=== PATIENT | male | born 1960 | race African-American/Black ===

== ENCOUNTER 2024-02-12 14:52 | Inpatient (IN) | payer OTHER ==
[2024-02-12 17:08] LABS: BASO % 0.3 % (0-2.0); EOS % 0.1 % (0-4.5); HEMATOCRIT 30.5 % (35.4-49); HEMOGLOBIN 9.6 GM/dL (11.7-16.9); LYMPH % 4.5 % (8-40); MCH 25.2 pg (25.7-33.7); MCHC 31.4 g/dl (32.0-35.9); MEAN CELL VOLUME 80.4 fl (80-96); MEAN PLT VOLUME 8.8 fl (7.5-11.1); MONO % 5.8 % (3.8-10.2); NEUT % 89.3 % (42.8-82.8); PLATELET COUNT 317 10^3/uL (134-434); RBC 3.79 M/mm3 (4.00-5.60); RDW 23.9 % (11.9-15.9); WHITE BLOOD COUNT 13.5 K/mm3 (4.0-10.0)
[2024-02-12 17:56] LABS: VENOUS BASE EXCESS -6.6 mmol/L (-2-2); VENOUS PCO2 28.6 mmHg (38-52); VENOUS PH 7.396 (7.310-7.410)
[2024-02-12 17:58] LABS: LACTIC ACID 3.4 mmol/L (0.4-2.0)
[2024-02-12 18:09] LABS: CHLORIDE 95 mmol/L (98-107); POTASSIUM 5.3 mmol/L (3.5-5.1); SODIUM 128 mmol/L (136-145)
[2024-02-12 18:10] LABS: CALCIUM 8.1 mg/dL (8.5-10.1)
[2024-02-12 18:11] LABS: ALBUMIN 2.7 g/dl (3.4-5.0); ANION GAP 14 mmol/L (4-13); BLOOD UREA NITROGEN 80.3 mg/dL (7-18); CO2 19 mmol/L (21-32); MAGNESIUM 2.4 mg/dL (1.8-2.4)
[2024-02-12 18:14] LABS: CREATININE 4.8 mg/dL (0.55-1.3); SGOT/AST 21 U/L (15-37)
[2024-02-12 18:15] LABS: PHOSPHOROUS 7.1 mg/dL (2.5-4.9)
[2024-02-12 18:17] LABS: ALK PHOS 170 U/L (45-117)
[2024-02-12 18:21] LABS: GLUCOSE,RANDOM 579 mg/dL (74-106)
[2024-02-12 18:26] LABS: SGPT/ALT 13 U/L (13-61)
[2024-02-12] MEDS ORDERED: INSULIN REGULAR HUMAN 100 UNITS/ML *VIAL ONE ×2 (18:43→22:38)
[2024-02-12] MEDS: INSULIN REGULAR HUMAN 100 UNITS/ML *VIAL SQ ONE ×2 (18:44→22:49)
[2024-02-12] MEDS: SODIUM CHLORIDE 0.9% 500 ML INFUS.BAG IV ONE (18:44)
[2024-02-12 19:56] LABS: ANISOCYTOSIS 1+; MACROCYTOSIS 0; SICKELED CELLS 1+; TARGET CELLS 1+
[2024-02-12] MEDS: INSULIN (NOVOLOG) ASPART 100 UNITS/ML 10ML VIAL SQ ONE (21:56)
[2024-02-12] MEDS: INSULIN (LEVEMIR) 100 UNITS/ML UNITS SQ ONE (22:48)
[2024-02-13 02:32] LABS: ARTERIAL BLD GAS O2 SATURATION 97.1 % (95-98); ARTERIAL BLOOD GAS BASE EXCESS -6.3 mmol/L (-2-2); ARTERIAL BLOOD GAS PO2 94.4 mmHg (80-100)
[2024-02-13 02:33] LABS: ALLENS TEST POSITIVE
[2024-02-13 03:40] VITALS: BMI 33.3
[2024-02-13] MEDS ORDERED: HYDRALAZINE PO SCH (06:00)
[2024-02-13] MEDS ORDERED: [UNRECOGNIZED DRUG - OTHER] PO SCH (06:00)
[2024-02-13] MEDS ORDERED: ISOSORBIDE DINITRATE PO SCH (06:00)
[2024-02-13] MEDS: hydrALAZINE HCL 25 MG TABLET (FP) PO SCH (06:09)
[2024-02-13] MEDS: INSULIN ASPART SLIDING SCALE (NOVOLOG) 1 VIAL SQ SCH (07:21)
[2024-02-13] MEDS: ISOSORBIDE DINITRATE 20 MG TABLET PO SCH (10:34)
[2024-02-13] MEDS: SPIRONOLACTONE 25 MG TABLET PO SCH (10:39)
[2024-02-13] MEDS: AMIODARONE HCL 200 MG TABLET PO SCH (10:39)
[2024-02-13] MEDS: TAMSULOSIN HCL 0.4 MG CAP PO SCH (10:40)
[2024-02-13] MEDS: LOSARTAN POTASSIUM 25 MG TABLET PO SCH (11:33)
[2024-02-13 12:03] LABS: HEMOGLOBIN 9.1 GM/dL (11.7-16.9); MCH 25.4 pg (25.7-33.7); MCHC 32.3 g/dl (32.0-35.9); MEAN CELL VOLUME 78.6 fl (80-96); MEAN PLT VOLUME 8.5 fl (7.5-11.1); PLATELET COUNT 330 10^3/uL (134-434); RBC 3.57 M/mm3 (4.00-5.60); RDW 23.1 % (11.9-15.9); WHITE BLOOD COUNT 16.1 K/mm3 (4.0-10.0)
[2024-02-13 12:27] LABS: ERYTHROCYTE SEDIMENTATION RATE 46 mm/hr (0-20)
[2024-02-13 12:28] LABS: POTASSIUM 5.1 mmol/L (3.5-5.1)
[2024-02-13 12:34] LABS: BLOOD UREA NITROGEN 87.7 mg/dL (7-18); CALCIUM 7.9 mg/dL (8.5-10.1); MAGNESIUM 2.3 mg/dL (1.8-2.4)
[2024-02-13 12:38] LABS: PHOSPHOROUS 8.2 mg/dL (2.5-4.9)
[2024-02-13 12:52] LABS: LACTIC ACID 2.4 mmol/L (0.4-2.0)
[2024-02-13] MEDS: TORSEMIDE 100 MG TABLET PO SCH (14:34)
[2024-02-13] MEDS ORDERED: SODIUM CHLORIDE 250 ML IV PRN (15:17)
[2024-02-13] MEDS: PIPERACILLIN/TAZOB 2.25 GM 2.25 GM/50 ML BAG IVPB SCH (16:12)
[2024-02-13] MEDS: HEPARIN NA (PORCINE) 5,000 UNITS/ML 1ML VIAL IVPUSH ONE (16:30)
[2024-02-13] MEDS ORDERED: PIPERACILLIN/TAZOB 2.25 GM 2.25 GM/50 ML BAG IVPB SCH (18:00)
[2024-02-13] MEDS: EPOETIN ALFA-EPBX 4,000 UNIT/ML VIAL SQ ONE (18:13)
[2024-02-13] MEDS: RIVAROXABAN 15 MG TABLET PO SCH (18:52)
[2024-02-13 19:30] LABS: POTASSIUM 4.9 mmol/L (3.5-5.1)
[2024-02-13 19:31] LABS: CALCIUM 7.4 mg/dL (8.5-10.1)
[2024-02-13 19:32] LABS: BLOOD UREA NITROGEN 85.1 mg/dL (7-18)
[2024-02-13 19:35] LABS: CREATININE 5.1 mg/dL (0.55-1.3)
[2024-02-13] MEDS: ATORVASTATIN CA 20 MG TABLET (FP) PO SCH (22:25)
[2024-02-14 07:35] LABS: BASO % 0.2 % (0-2.0); EOS % 1.6 % (0-4.5); HEMATOCRIT 28.7 % (35.4-49); HEMOGLOBIN 9.2 GM/dL (11.7-16.9); LYMPH % 10.9 % (8-40); MCH 25.5 pg (25.7-33.7); MCHC 31.9 g/dl (32.0-35.9); MEAN CELL VOLUME 79.9 fl (80-96); MEAN PLT VOLUME 8.4 fl (7.5-11.1); MONO % 8.5 % (3.8-10.2); NEUT % 78.8 % (42.8-82.8); PLATELET COUNT 297 10^3/uL (134-434); RBC 3.59 M/mm3 (4.00-5.60); RDW 23.6 % (11.9-15.9); WHITE BLOOD COUNT 13.2 K/mm3 (4.0-10.0)
[2024-02-14] MEDS: VANCOMYCIN/WATER FOR INJ (PEG) 1,000 MG/200 ML BAG IVPB ONE ×2 (07:43→09:06)
[2024-02-14] MEDS: INSULIN (LEVEMIR) 100 UNITS/ML UNITS SQ ONE (07:45)
[2024-02-14 08:14] LABS: POTASSIUM 4.2 mmol/L (3.5-5.1)
[2024-02-14 08:27] LABS: CALCIUM 7.8 mg/dL (8.5-10.1)
[2024-02-14 08:31] LABS: ALBUMIN 2.6 g/dl (3.4-5.0); CREATININE 3.3 mg/dL (0.55-1.3)
[2024-02-14 08:32] LABS: BILIRUBIN,TOTAL 0.8 mg/dL (0.2-1); TOT PROT 6.8 g/dl (6.4-8.2)
[2024-02-14 08:33] LABS: LACTIC ACID 2.3 mmol/L (0.4-2.0)
[2024-02-14 08:34] LABS: BLOOD UREA NITROGEN 45.8 mg/dL (7-18)
[2024-02-14 08:35] LABS: PHOSPHOROUS 4.2 mg/dL (2.5-4.9)
[2024-02-14] MEDS: TAMSULOSIN HCL 0.4 MG CAP PO SCH (09:07)
[2024-02-14] MEDS: AMIODARONE HCL 200 MG TABLET PO SCH (09:27)
[2024-02-14] MEDS: SPIRONOLACTONE 25 MG TABLET PO SCH (09:27)
[2024-02-14] MEDS: TORSEMIDE 100 MG TABLET PO SCH (09:27)
[2024-02-14] MEDS: LOSARTAN POTASSIUM 25 MG TABLET PO SCH (09:28)
[2024-02-14] MEDS: ISOSORBIDE DINITRATE 20 MG TABLET PO SCH (09:28)
[2024-02-14] MEDS: PIPERACILLIN/TAZOB 2.25 GM 2.25 GM/50 ML BAG IVPB SCH (11:46)
[2024-02-14] MEDS: INSULIN ASPART SLIDING SCALE (NOVOLOG) 1 VIAL SQ SCH (13:21)
[2024-02-14] MEDS: hydrALAZINE HCL 25 MG TABLET (FP) PO SCH (13:24)
[2024-02-14] MEDS: RIVAROXABAN 15 MG TABLET PO SCH (18:17)
[2024-02-14] MEDS: INSULIN (LEVEMIR) 100 UNITS/ML UNITS SQ SCH (21:57)
[2024-02-14] MEDS: ATORVASTATIN CA 20 MG TABLET (FP) PO SCH (21:57)
[2024-02-15 07:42] LABS: BASO % 0.6 % (0-2.0); EOS % 2.2 % (0-4.5); HEMATOCRIT 29.5 % (35.4-49); HEMOGLOBIN 9.4 GM/dL (11.7-16.9); LYMPH % 14.5 % (8-40); MCH 25.4 pg (25.7-33.7); MCHC 31.8 g/dl (32.0-35.9); MEAN CELL VOLUME 79.8 fl (80-96); MEAN PLT VOLUME 8.5 fl (7.5-11.1); MONO % 10.3 % (3.8-10.2); NEUT % 72.4 % (42.8-82.8); PLATELET COUNT 324 10^3/uL (134-434); RDW 23.4 % (11.9-15.9); WHITE BLOOD COUNT 12.8 K/mm3 (4.0-10.0)
[2024-02-15 07:52] LABS: POTASSIUM 4.7 mmol/L (3.5-5.1)
[2024-02-15 07:55] LABS: ALBUMIN 2.9 g/dl (3.4-5.0); BLOOD UREA NITROGEN 55.6 mg/dL (7-18)
[2024-02-15 07:58] LABS: CREATININE 3.9 mg/dL (0.55-1.3)
[2024-02-15 07:59] LABS: PHOSPHOROUS 4.9 mg/dL (2.5-4.9)
[2024-02-15 08:00] LABS: TOT PROT 7.3 g/dl (6.4-8.2)
[2024-02-15] MEDS ORDERED: SODIUM CHLORIDE 250 ML IV PRN (13:43)
[2024-02-15] MEDS: EPOETIN ALFA-EPBX 4,000 UNIT/ML VIAL SQ ONE (14:54)
[2024-02-15] MEDS: hydrALAZINE HCL 25 MG TABLET (FP) PO SCH (22:03)
[2024-02-15] MEDS: INSULIN (LEVEMIR) 100 UNITS/ML UNITS SQ SCH (22:06)
[2024-02-15] MEDS: ATORVASTATIN CA 20 MG TABLET (FP) PO SCH (22:06)
[2024-02-15] MEDS: INSULIN ASPART SLIDING SCALE (NOVOLOG) 1 VIAL SQ SCH (22:08)
[2024-02-16] MEDS: PIPERACILLIN/TAZOB 2.25 GM 2.25 GM/50 ML BAG IVPB SCH (02:56)
[2024-02-16] MEDS: MELATONIN 5 MG TABLETS PO ONE (02:58)
[2024-02-16 09:20] LABS: HEMATOCRIT 29.4 % (35.4-49); HEMOGLOBIN 9.5 GM/dL (11.7-16.9); MCH 25.4 pg (25.7-33.7); MCHC 32.2 g/dl (32.0-35.9); MEAN CELL VOLUME 78.7 fl (80-96); MEAN PLT VOLUME 8.5 fl (7.5-11.1); PLATELET COUNT 296 10^3/uL (134-434); RBC 3.74 M/mm3 (4.00-5.60)
[2024-02-16 09:34] LABS: POTASSIUM 4.7 mmol/L (3.5-5.1)
[2024-02-16 09:38] LABS: CALCIUM 7.8 mg/dL (8.5-10.1)
[2024-02-16 09:39] LABS: ALBUMIN 2.8 g/dl (3.4-5.0); BLOOD UREA NITROGEN 62.4 mg/dL (7-18)
[2024-02-16 09:43] LABS: BILIRUBIN,TOTAL 1.1 mg/dL (0.2-1); TOT PROT 6.9 g/dl (6.4-8.2)
[2024-02-16 10:24] LABS: MAGNESIUM 2.1 mg/dL (1.8-2.4)
[2024-02-16] MEDS: EPOETIN ALFA-EPBX 4,000 UNIT/ML VIAL IVPUSH ONE (12:04)
[2024-02-16] MEDS: ISOSORBIDE DINITRATE 20 MG TABLET PO SCH (13:51)
[2024-02-16] MEDS: LOSARTAN POTASSIUM 25 MG TABLET PO SCH (14:26)
[2024-02-16] MEDS: SPIRONOLACTONE 25 MG TABLET PO SCH (14:26)
[2024-02-16] MEDS: AMIODARONE HCL 200 MG TABLET PO SCH (14:27)
[2024-02-16] MEDS: TAMSULOSIN HCL 0.4 MG CAP PO SCH (14:32)
[2024-02-16] MEDS: TORSEMIDE 100 MG TABLET PO SCH (14:44)
[2024-02-16] MEDS: RIVAROXABAN 15 MG TABLET PO SCH (17:15)
[2024-02-17 08:59] LABS: BASO % 0.8 % (0-2.0); EOS % 1.5 % (0-4.5); HEMATOCRIT 31.8 % (35.4-49); HEMOGLOBIN 9.7 GM/dL (11.7-16.9); LYMPH % 10.1 % (8-40); MCH 24.7 pg (25.7-33.7); MCHC 30.5 g/dl (32.0-35.9); MONO % 9.8 % (3.8-10.2); NEUT % 77.8 % (42.8-82.8); PLATELET COUNT 289 10^3/uL (134-434); RBC 3.93 M/mm3 (4.00-5.60); RDW 24.8 % (11.9-15.9)
[2024-02-17 09:22] LABS: POTASSIUM 3.9 mmol/L (3.5-5.1)
[2024-02-17 09:30] LABS: CALCIUM 8.1 mg/dL (8.5-10.1)
[2024-02-17 09:31] LABS: ALBUMIN 2.7 g/dl (3.4-5.0); BLOOD UREA NITROGEN 41.1 mg/dL (7-18); MAGNESIUM 1.9 mg/dL (1.8-2.4)
[2024-02-17 09:34] LABS: ANISOCYTOSIS 2+; MACROCYTOSIS 0; OVALOCYTE 1+; TARGET CELLS 1+
[2024-02-17 09:35] LABS: BILIRUBIN,TOTAL 1.1 mg/dL (0.2-1)
[2024-02-17 09:36] LABS: TOT PROT 6.9 g/dl (6.4-8.2)
[2024-02-18 08:41] LABS: BASO % 1.5 % (0-2.0); EOS % 2.7 % (0-4.5); HEMATOCRIT 30.1 % (35.4-49); HEMOGLOBIN 9.3 GM/dL (11.7-16.9); LYMPH % 11.4 % (8-40); MCH 25.1 pg (25.7-33.7); MCHC 30.9 g/dl (32.0-35.9); MEAN CELL VOLUME 81.4 fl (80-96); NEUT % 72.4 % (42.8-82.8); PLATELET COUNT 274 10^3/uL (134-434); RDW 24.6 % (11.9-15.9); WHITE BLOOD COUNT 11.4 K/mm3 (4.0-10.0)
[2024-02-18 09:11] LABS: POTASSIUM 4.1 mmol/L (3.5-5.1)
[2024-02-18 09:16] LABS: ALBUMIN 2.8 g/dl (3.4-5.0); BLOOD UREA NITROGEN 45.8 mg/dL (7-18); CALCIUM 8.6 mg/dL (8.5-10.1)
[2024-02-18 09:19] LABS: CREATININE 3.1 mg/dL (0.55-1.3)
[2024-02-18 09:20] LABS: BILIRUBIN,TOTAL 1.1 mg/dL (0.2-1); TOT PROT 6.8 g/dl (6.4-8.2)
[2024-02-18] MEDS ORDERED: SODIUM CHLORIDE 250 ML IV PRN (09:28)
[2024-02-18] MEDS: EPOETIN ALFA-EPBX 4,000 UNIT/ML VIAL IVPUSH ONE (11:03)
[2024-02-19 11:08] LABS: BASO % 1.1 % (0-2.0); EOS % 2.5 % (0-4.5); HEMATOCRIT 30.2 % (35.4-49); HEMOGLOBIN 9.8 GM/dL (11.7-16.9); LYMPH % 12.1 % (8-40); MCH 25.9 pg (25.7-33.7); MCHC 32.4 g/dl (32.0-35.9); MEAN CELL VOLUME 79.9 fl (80-96); MEAN PLT VOLUME 8.1 fl (7.5-11.1); NEUT % 68.3 % (42.8-82.8); PLATELET COUNT 281 10^3/uL (134-434); RBC 3.79 M/mm3 (4.00-5.60); RDW 23.9 % (11.9-15.9); WHITE BLOOD COUNT 9.4 K/mm3 (4.0-10.0)
[2024-02-19 11:17] LABS: POTASSIUM 4.3 mmol/L (3.5-5.1)
[2024-02-19 11:24] LABS: ALBUMIN 2.8 g/dl (3.4-5.0); BLOOD UREA NITROGEN 32.3 mg/dL (7-18)
[2024-02-19 11:25] LABS: CALCIUM 8.6 mg/dL (8.5-10.1)
[2024-02-19 11:27] LABS: BILIRUBIN,TOTAL 1.1 mg/dL (0.2-1); CREATININE 2.7 mg/dL (0.55-1.3)
[2024-02-19 11:28] LABS: TOT PROT 6.9 g/dl (6.4-8.2)
[2024-02-19] MEDS: COLLAGENASE CLOSTRIDIUM HIST. 30 GRAMS TUBE TP SCH (16:39)
[2024-02-20] MEDS ORDERED: SODIUM CHLORIDE 250 ML IV PRN (16:00)
[2024-02-20] MEDS: EPOETIN ALFA-EPBX 4,000 UNIT/ML VIAL IVPUSH ONE (16:26)
[2024-02-20] MEDS: VANCOMYCIN/WATER FOR INJ (PEG) 1,000 MG/200 ML BAG IVPB ONE (18:49)
[2024-02-20] MEDS: PIPERACILLIN/TAZOB 2.25 GM 2.25 GM/50 ML BAG IVPB SCH (21:02)
[2024-02-21 14:38] VITALS: PULSE 76
[2024-02-21] MEDS: BENZOCAINE/MENTHOL 1 EACH LOZENGE MM ONE (14:56)
[2024-02-21 17:42] VITALS: BP 136/78; RESP 18; TEMP 98.1
== END 2024-02-21 18:35 | DRG 637 ==
LOC: JER 14:52 → JERBED 21:12 → J5S 02-13 03:31 → J4W 02-13 21:16 → J8W 02-15 19:17
PROVIDERS: ADMIT Internal Medicine; ATTEND Nurse Practitioner Family
PROC: 5A1D70Z Performance of Urinary Filtration, Intermittent, Less than 6 Hours Per Day (ICD-10-PCS; principal; 2024-02-20)
DX: E11.65 Type 2 diabetes mellitus with hyperglycemia (principal); N18.6 End stage renal disease; M86.8X7 Other osteomyelitis, ankle and foot; I13.2 Hypertensive heart and chronic kidney disease with heart failure and with stage 5 chronic kidney disease, or end stage renal disease; I50.30 Unspecified diastolic (congestive) heart failure; E78.5 Hyperlipidemia, unspecified; I48.91 Unspecified atrial fibrillation; N40.0 Benign prostatic hyperplasia without lower urinary tract symptoms; E66.9 Obesity, unspecified; Z68.35 Body mass index [BMI] 35.0-35.9, adult; E11.69 Type 2 diabetes mellitus with other specified complication; E11.22 Type 2 diabetes mellitus with diabetic chronic kidney disease; Z99.2 Dependence on renal dialysis; E11.40 Type 2 diabetes mellitus with diabetic neuropathy, unspecified
CPT/HCPCS: 0241U-QW; 36415; 36600; 70450-TC; 71045-TC-FY; 73630-TC-RT-FY; 73718-TC-RT; 80048; 80053; 82010; 82803; 82962; 83036; 83605; 83735; 84100; 85025; 85027; 85651; 86140; 86704; 86803; 87040; 87070; 87186; 87205; 87340; 87481; 87517; 93005; 93010; 93922; 93926-TC; 97116-GP; 97161-GP; 99285-25; G0480; J1644; Q5106